=== PATIENT | male | born 1990 | race Two or more races ===

== ENCOUNTER → 2024-03-16 | Outpatient (CLI) | payer OTHER | LOC: M WHC 12:25 | PROVIDERS: ATTEND Nurse Practitioner Family | DX: N63.0 Unspecified lump in unspecified breast (principal); N62 Hypertrophy of breast | CPT/HCPCS: 76642; 77066; G0279 ==

== ENCOUNTER 2024-05-19 08:44 | Emergency (ER) | payer OTHER ==
[~2024-05-19] VITALS: Ht 177.8 cm; Wt 104.0 kg
[2024-05-19] MEDS: ACETAMINOPHEN 500 MG TAB PO ONE (11:43)
[2024-05-19] MEDS: methocarbamoL 500 MG TAB PO ONE (14:56)
[2024-05-19 20:09] VITALS: BP 123/75; TEMP 97.3; O2SAT 99
[2024-05-19] MEDS ORDERED: PRED20TA PO (20:37)
[2024-05-19] MEDS ORDERED: IBUP-1022 PO (20:37)
[2024-05-19] MEDS ORDERED: METH-1164 PO (20:37)
== END 2024-05-19 20:52 | disposition home or self-care (01) ==
LOC: M ED 08:44
DX: M51.86 Other intervertebral disc disorders, lumbar region (principal); Z79.1 Long term (current) use of non-steroidal anti-inflammatories (NSAID); Z79.52 Long term (current) use of systemic steroids

== ENCOUNTER → 2024-05-24 | Outpatient (REF) | payer OTHER ==
[~2024-05-24] MED LIST: IBUP-1022 PO; METH-1164 PO; PRED20TA PO
[2024-05-24 11:59] LABS: SEMEN APPEARANCE OPAQUE (OPAQUE); SEMEN VISCOSITY LIQUID (LIQUID); SEMEN VOLUME 2.8 ml (2.0-5.0); SPERM CONCENTRATION 17.6 M/ml (>=15.0); WBC CONCENTRATION <=1 M/ml (<=1 M/ml)
== END ==
LOC: M LAB REF 09:53
PROVIDERS: ATTEND Nurse Practitioner Family
DX: Z31.41 Encounter for fertility testing (principal)